=== PATIENT | female | born 1960 | race Caucasian/White ===

== ENCOUNTER → 2019-08-28 07:39 | Outpatient (CLI) | payer OTHER, SELFPAY ==
--- NOTE | 2019-08-28 07:46 | RAD_ITS ---
STUDY: X-RAY - SACRUM/COCCYX REASON FOR EXAM: Female, 59 years old. Tailbone pain x 3 weeks, no known injury TECHNIQUE: 3 view(s) of the sacrum and coccyx were obtained. COMPARISON: None. FINDINGS: There is degenerative arthrosis of the bilateral sacroiliac joints. Normal visualized sacral ala and fused sacral bodies. Normal sacrococcygeal junction with a normal angulation. Normal coccygeal segments. The presacral soft tissue structures are unremarkable. RAD/Sacrum-Coccyx min 2 Views IMPRESSION: Degenerative changes of the sacroiliac joints. Electronically Signed: Dada De Los Santos, at 15:35 EDT , Service support ,
== END ==
PROVIDERS: PCP Family Medicine; Referring Provider Family Medicine; Visit Provider Family Medicine
DX: M53.3 Sacrococcygeal disorders, not elsewhere classified (principal); C50.919 Malignant neoplasm of unspecified site of unspecified female breast
CPT/HCPCS: 72220

== ENCOUNTER → 2020-10-22 07:54 | Outpatient (CLI) | payer OTHER, SELFPAY ==
[2016-07-11 11:19] VITALS: BMI 24.0
[2020-10-22 10:38] LABS: Cholesterol 201 mg/dL (200); Glucose 93 mg/dL (74-106); High Density Lipoprotein 53 mg/dL; Triglycerides 121 mg/dL; Very Low Density Lipoprotein 24 mg/dL (5-40)
== END ==
PROVIDERS: PCP Family Medicine; Referring Provider Family Medicine; Visit Provider Family Medicine
DX: Z13.220 Encounter for screening for lipoid disorders (principal); Z13.1 Encounter for screening for diabetes mellitus
CPT/HCPCS: 36415; 80061; 82947

== ENCOUNTER 2021-07-03 15:46 | Outpatient (CLI) | payer OTHER, SELFPAY ==
--- NOTE | 2021-07-03 15:48 | RAD_ITS ---
HISTORY: HIP PAIN. TECHNIQUE: XR Hips Bilateral with Pelvis when performed; 2 Views. # of images incl. paperwork: 5. COMPARISON: None. FINDINGS: OSSEOUS STRUCTURES: No acute displaced fracture identified. Note that overlapping bowel shadows may obscure detail. Mineralization unremarkable. ALIGNMENT/JOINTS: No dislocation. Mild degenerative changes of the hips, left greater than right. RAD/Hips B/L min 2 views w/ Pelvis IMPRESSION: No acute fracture or dislocation identified in the bilateral hips. at 1145 Reported and signed by: Shannen Lora MD Electronically Signed: Shannen Lora MD at 11:44 EDT ,
== END 2021-07-03 23:59 | disposition home or self-care (01) ==
LOC: MTRAD 15:47
PROVIDERS: PCP Family Medicine; Referring Provider Family Medicine; Visit Provider Family Medicine
DX: M25.551 Pain in right hip (principal); M25.552 Pain in left hip
CPT/HCPCS: 73521

== ENCOUNTER → 2022-12-29 | Outpatient (CLI) | payer OTHER, SELFPAY ==
--- NOTE | 2022-12-29 11:47 | EKG12_ITS ---
Test Reason : PRE-OP Blood Pressure : / mmHG Vent. Rate : 067 BPM Atrial Rate : 067 BPM P-R Int : 124 ms QRS Dur : 058 ms QT Int : 368 ms P-R-T Axes : 035 098 074 degrees QTc Int : 388 ms Normal sinus rhythm Normal ECG Confirmed by TAHIRA SANCHEZ, MAI ([id number]), school photograph editor FARHAD RODRIGUEZ ([id number]) on 01/04/2023 7:08:16 AM Referred By: Mick Lay Confirmed By:MAI HOFFMANN MD
[2022-12-29 12:28] LABS: Absolute Lymphocyte Count 2.69 X10^3/uL (0.83-4.51); Absolute Neutrophil Count 4.9 X10^3/uL (2.0-7.7); Basophil# 0.02 X10^3/uL; Basophil% 0.2 % (0-1); Eosinophil# 0.15 X10^3/uL; Eosinophils% 1.8 % (0-5); Hematocrit 44.4 % (37-47); Hemoglobin 13.7 g/dL (12.0-15.0); Lymphocyte # 2.69 X10^3/ul (0.83-4.51); Lymphocyte % 32.3 % (19-41); Mean Corp Hgb Conc 30.9 g/dL (32-36); Mean Corpuscular Hgb 29.2 pg (27.0-32.0); Mean Corpuscular Volume 94.7 fL (81-99); Mean Platelet Vol. 9.8 fl (6.2-12.0); Monocyte# 0.59 X10^3/uL; Monocyte% 7.1 % (0-10); NRBC Flagged by Analyzer 0 % (0-5); Neutrophil # 4.85 X10^3/uL (2.7-7.7); Neutrophil % 58.4 % (47-70); Platelet Count 201 K/mm3 (150-450); RBC Distribution Width CV 11.9 % (11.6-14.6); RBC Distribution Width SD 41.7 fl (35.1-43.9); Red Blood Count 4.69 M/mm3 (4.2-5.4); White Blood Count 8.3 K/mm3 (4.4-11.0)
[2022-12-29 13:00] LABS: Albumin, Serum 3.5 g/dL (3.2-5.0); Anion Gap 2 (5-15); BUN 20 mg/dL (7-18); BUN/Creat Ratio 24.1 RATIO (10-20); Calcium,Total 9.8 mg/dL (8.5-10.1); Chloride 110 mmol/L (98-107); Creatinine, Serum 0.83 mg/dL (0.55-1.02); EST Glomerular Filtration Rate 73 mL/min (>60); Est Glom Filt Rate - Afr Amer 89 mL/min (>60); Glucose 101 mg/dL (74-106); Potassium 4.4 mmol/L (3.5-5.1); Sodium Level 142 mmol/L (136-145)
== END | disposition home or self-care (01) ==
PROVIDERS: PCP Family Medicine; Referring Provider Specialist; Visit Provider Specialist
DX: Z01.818 Encounter for other preprocedural examination (principal); M16.11 Unilateral primary osteoarthritis, right hip; Z01.810 Encounter for preprocedural cardiovascular examination
CPT/HCPCS: 36415; 80048; 82040; 85025; 93005